=== PATIENT | female | born 1990 | race Caucasian/White ===

== ENCOUNTER 2022-05-26 10:12 | Emergency (ER) | payer MEDICARE, MEDICAID, SELFPAY ==
[2022-05-26 11:05] VITALS: BP 118/82; PULSE 86; RESP 18; TEMP 36.8; O2SAT 99; BMI 18.9
[2022-05-26 14:01] VITALS: BP 115/76; PULSE 96; RESP 16; TEMP 36.8; O2SAT 100
--- NOTE | 2022-05-26 14:29 | ED.NURSE ---
Patient wanting to leave. States No one gives a rats ass and he won't do anything for me so i just want to leave. Offered AMA paperwork but patient refused to sign stating I need a work note. notified.
--- NOTE | 2022-05-26 14:53 | ED.NURSE ---
Referral for ENT given to patient and provided the number to make appointment. Work note provided for today. Left via ambulatory. Had no further questions.
--- NOTE | 2022-05-26 15:03 | ED_ITS ---
HPI - Dental/Oral General Date Seen: 05/26/22 Chief complaint: Dental/Oral/Mouth Injury/Pain Stated complaint: Gash on roof of mouth, painful lump back of scalp Source: patient Mode of arrival: ambulatory Limitations: no limitations History of Present Illness HPI Narrative: Patient is a 31-year-old female who presents here with a spot on her upper mandible, she has had this for over a year, she said there was some discharge out of it, and she can feel it going into her sinus, on the left side, she says it radiates pain into her head, and also down through her neck, this is been going on for months to possibly your, she is recovering addict, been clean for greater than 8 months, no history of fevers chills or sweats, no neck pain or stiffness, and she says she just had enough of this would like it is taking care of, she says she has 10/10 pain, I have seen her any ED 2, she is in no apparent distress. Teeth map: 1. Related Data Home Medications Medication Instructions Recorded Confirmed No Known Home Medications 05/26/22 05/26/22 Allergies Allergy/AdvReac Type Severity Reaction Status Date / Time No Known Drug Allergies Allergy Verified 05/26/22 11:10 Review of Systems Status of ROS: Reports: 6 or more systems reviewed and unremarkable except as noted in History and below [facility] Social History Smoking Status: Current every day smoker What tobacco products do you use: c igarettes Smoking packs per day: 0.5 Smoking cigarettes per day: 10.0 Do you use any of these nicotine containing products: Vaping Products Second hand tobacco smoke exposure: Yes How often do you have a drink containing alcohol: 2-3 times a week Alcohol type: hard liquor AUDIT-C Alcohol total score: 3 Non-prescribed substance use: marijuana (any form) and other Non-prescribed substance use details: former everything drug user- sober for a few months Caffeine: Yes service: No Exam Narrative: Exam Narrative: Patient is seen and 82 she has no apparent distress, there is a spot on her hard palate, on the left side, just behind tooth number 2, it she says there is a hole there I can see a hole, but there is clearly a rigid there, her nasal mucosa bilaterally is normal her sinuses are nontender, there is no lymphadenopathy anterior posterior chains, or neck is supple, she complains of left-sided mastoid discomfort but there is no tenderness swelling notable, there is dullness to both the tympanic membranes bilaterally, but otherwise normal, no meningismus is noted, her chest is clear heart sounds are normal. Const: Vital Signs, click to edit/add: Vital Signs - 24 hr 05/26/22 11:05 05/26/22 14:01 Temperature 98.2 F 98.3 F Pulse Rate [Pulse Oximeter] 86 96 Respiratory Rate 18 16 Blood Pressure [[facility] Upper Arm] 118/82 115/76 Pulse Oximetry 99 100 Oxygen Delivery Me thod Room Air Room Air Course Vital Signs Vital signs: Initial Vital Signs Temperature 98.2 F 05/26/22 11:05 Temperature Source Temporal Artery Scan 05/26/22 11:05 Pulse Rate 86 05/26/22 11:05 Respiratory Rate 18 05/26/22 11:05 Blood Pressure 118/82 05/26/22 11:05 Blood Pressure Mean 94 05/26/22 11:05 Blood Pressure Position Sitting 05/26/22 11:05 Pulse Oximetry 99 05/26/22 11:05 Oxygen Delivery Method 05/26/22 11:05 Vital Signs Temperature 98.2 F 05/26/22 11:05 Pulse Rate 86 05/26/22 11:05 Respiratory Rate 18 05/26/22 11:05 Blood Pressure 118/82 05/26/22 11:05 Pulse Oximetry 99 05/26/22 11:05 Oxygen Delivery Method 05/26/22 11:05 Temperature 98.3 F 05/26/22 14:01 Pulse Rate 96 05/26/22 14:01 Respiratory Rate 16 05/26/22 14:01 Blood Pressure 115/76 05/26/22 14:01 Pulse Oximetry 100 05/26/22 14:01 Oxygen Delivery Method 05/26/22 14:01 MDM - Dental/Oral MDM Narrative Medical decision making narrative: I considered multiple diagnosis including tooth abscess, Rosendo's angina, sinusitis, sinus tract, mastoiditis, your infection, Considering how long it has gone on and she is nontoxic I think we can all discharge her to follow up with ENT at this point. I do not see 04/28 pain here today, recommended that she take Tylenol ibuprofen with this, she wanted a work note which I provided for her, review of the [facility] program did not show any narcotic prescriptions. Medical Records Attestation: I reviewed the patient's medical records. Discharge Plan Discharge Clinical Impression: Orofacial sinus tract Patient Disposition: Home, Self-Care Condition: Stable Additional Instructions: discharge home, follow up with ENT Prescriptions: No Action No Known Home Medications Follow Up/Referrals: Lasha Bridges MD [Staff Physician] - Stand Alone Forms: [employer] Info Instructions
--- OUTSIDE RECORDS SUMMARY | 2022-05-26 15:18 | XMS_ITS | Encounter Summary ---
:1990 Author Organization [facility] Address [address] [place] [address] Care Team Providers Name Role Phone Unavailable Primary Care Provider Unavailable Encounter Details Date Type Department Care Team Description 07/23/2018 Abstract Department of Family Medicine in Provider , [address] [address] Social History Tobacco Use Types Packs/Day Years Used Date Smoking Tobacco: Never Assessed Social Isolation Answer Date Recorded In a typical week, how many times do you talk on the Twice a week 10/07/2021 phone with family, friends, or neighbors? How often do you get together with friends or relatives? Onc e a week 10/07/2021 How often do you attend presybeterian or zoroastrianism services? Never 10/07/2021 Do you belong to any clubs or organizations such as No 10/07/2021 presybeterian groups, unions, fraternal or athletic groups, or school groups? How often do you attend meetings of the clubs or Never 10/07/2021 organizations you belong to? Are you now , , , , never Nev er 10/07/2021 or living with a partner? Physical Activity Answer Date Recorded On average, how many days per week do you engage in moderate to 5 days 10/07/2021 strenuous exercise (like walking fast, running, jogging, dancing, swimming, biking, or other activities that cause a light or heavy sweat)? On average, how many minutes do you engage in exercise at th is 20 min 10/07/2021 level? Stress Answer Date Recorded Do you feel stress - tense, restless, nervous, or anxious, R ather much 10/07/2021 or unable to sleep at night because your mind is troubled all the time - these days? Financial Resource Strain Answer Date Recorded How hard is it for you to pay for the very basics like Not v ac hard 10/07/2021 food, housing, medical care, and heating? Intimate Partner Violence Answer Date Recorded Within the last year, have you been afraid of your partner o r No 10/07/2021 ex-partner? Within the last year, have you been humiliated or emotionall y No 10/07/2021 abused in other ways by your partner or ex-partner? Within the last year, have you been kicked, hit, slapped, or No 10/07/2021 otherwise physically hurt by your partner or ex-partner? Within the last year, have you been raped or forced to have any No 10/07/2021 kind of sexual activity by your partner or ex-partner? Housing Stability Answer Date Recorded In the last 12 months, was there a time when you were not No 10/07/2021 able to pay the mortgage or rent on time? In the last 12 months, how many places have you lived? Not a sked In the last 12 months, was there a time when you did not hav e Not asked a steady place to sleep or slept in a long term (including now)? Sex Assigned at Date Recorded Female 10/07/2021 10:51 AM CDT documented as of this encounter Plan of Treatment Not on filedocumented as of this encounter Procedures Procedure Name Priority Date/Time Associated Diagnosis Comme nts COLONOSCOPY Routine 06/21/2018 Results for t his procedure are in the resu lts section. documented in this encounter Results COLONOSCOPY (06/21/2018) [facility] Method Time Signature Colonoscopy see scanned EXTERNAL report NON-INTERFACE D LAB Ordering Provider External M.D. HEALTH MAINTENANCE Performing Organization Address City/State/ZIP Code Phon e Number EXTERNAL NON-INTERFACED LAB [address] [place], [place] [address] documented in this encounter Visit Diagnoses Not on filedocumented in this encounter
--- OUTSIDE RECORDS SUMMARY | 2022-05-26 15:18 | XMS_ITS | Clinical Summary ---
:1990 Author Organization [facility] Address [address] [place] [address] Care Team Providers Name Role Phone Elsewhere, Pcp Primary Care Provider Unavailable Source Comments Patient records contain information from all sites at [facility]. For routine questions regarding patient records, call [phone] during business hours, M-F 8:00 AM - 5:00 PM Central Time. Record requests for emergency care only can be directed to [phone] at any time.[facility] Allergies No known active allergies Medications Medication Sig Dispensed Refills Start Date End Date Status traZODone (DESYREL) 100 Take 100 mg by 0 08/15/2021 Active mg tablet mouth daily with breakfast. cetirizine (ZyrTEC) 10 Take 10 mg by 0 09/24/2021 Active mg tablet mouth. etonogestreL Inject 1 each 0 05/28/2021 Ac tive (NEXPLANON) 68 mg under the skin. subdermal implant multivitamin tablet Take 1 tablet by 0 09/24/2021 Active mouth daily. Active Problems Problem Noted Date Crohns Disease Of Large Intestine Without Complication s 09/24/2021 Gastroparesis 10/27/2019 Deficiency Vitamin D 08/01/2016 Abnormal Pap Smear Cervix 05/21/2016 Overview: Formatting of this note might be differe nt from the original. Overview: 2009 ASCUS, HPV+ Formatting of this note might be differe nt from the original. 2009 ASCUS, HPV+ Resolved Problems Problem Noted Date Resolved Date Other Specified Behavioral And Emotional Disorders With 09/1810/07/2021 Onset Usually Occurring In Childhood And Adolescence Moderate Or Severe Use Disorder (Dependence) Alcohol 016 10/07/2021 Remission Overview: Formatting of this note might be differe nt from the original. Overview: Hx outpatient treatment x2 Hx DUI ; Alcohol dependence in remission ([facility]), quit date 2008 Formatting of this note might be differe nt from the original. Hx outpatient treatment x2 Hx DUI ; Alcohol dependence in remission ([facility]), quit date 2008 Opioid Moderate Or Severe Use Disorder (Dependence) 05/21/20 16 10/07/2021 Uncomplicated Overview: Formatting of this note might be differe nt from the original. 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 h/o vocal cord nodules Formatting of this note might be differe nt from the original. Overview: h/o vocal cord nodules Immunizations Name Administration Dates Next Due 4vHPV (discontinued) 11/07/2014, 09/20/2008, 06/19/2008 DTP 10/13/1995 DTaP (Infanrix, Tripedia) 10/13/1995 HepA Adult 06/13/2019 HepA Pediatric/Adolescent 06/19/2008 IPV 10/13/1995 Influenza, Injectable, Mdck, Preservative 06/01/2020 Free, Quadrivalent Influenza, Unspecified 06/13/2015 MCV4 (Menactra) 06/19/2008 MMR 02/10/2003 OPV 10/13/1995 PPSV23 05/28/2021, 06/01/2020 SARS-COV-2 (COVID-19) - Kidzloop (12 years 05/19/2021 or older) Td (Adult), adsorbed 02/10/2003 Td, (Adult) Unspecified 02/10/2003 Tdap 11/07/2014 influenza vaccine quad (FLUZONE/FLUARIX) 05/28/2021, 016, 06/13/2015 (6 months and older)(PF) Social History Tobacco Use Types Packs/Day Years Used Date Smoking Tobacco: Every Day Cigarettes 1 Smokeless Tobacco: Never Tobacco Cessation: Counseling Given: Yes Alcohol Use Standard Drinks/Week Comments Yes 0 (1 standard drink = 0.6 oz pure alcoho l) occaiaisionally. Social Isolation Answer Date Recorded In a typical week, how many times do you talk on the Twice a week 10/07/2021 phone with family, friends, or neighbors? How often do you get together with friends or relatives? Onc e a week 10/07/2021 How often do you attend moravian or mormonism services? Never 10/07/2021 Do you belong to any clubs or organizations such as No 10/07/2021 moravian groups, unions, fraternal or athletic groups, or [...] place to sleep or slept in a usp (including now)? Sex Assigned at Date Recorded Female 10/07/2021 10:51 AM CDT Last Filed Vital Signs Vital Sign Reading Time Taken Comments Blood Pressure 117/78 10/07/2021 7:59 AM CDT Pulse 95 10/07/2021 7:59 AM CDT Temperature 37.3 ??C (99.1 ??F) 10/07/2021 7:59 AM CDT Respiratory Rate 14 10/07/2021 7:59 AM CDT Oxygen Saturation 99% 10/07/2021 7:59 AM CDT Inhaled Oxygen Concentration - - Weight 48.5 kg (107 lb) 10/07/2021 7:59 AM CDT Height - - Body Mass Index - - Plan of Treatment Health Maintenance Due Date Last Done Comments Cervical Cancer Screening 1990 HIV Screening 1990 Hepatitis B Vaccines (1 of 3 - 1990 3-dose series) Hepatitis C Screening 1990 COVID-19 Vaccine (2 - Pfizer 06/09/2021 05/19/2021 series) Influenza Vaccine (#1) 2022 05/28/2021, 06/01/2020, 06/25/2016, Additional history exists Pneumococcal vaccine (0-64 years) 05/28/2022 05/28/2021, (2 - PCV) Tobacco Cessation counseling 10/07/2022 10/07/2021 DTaP,Tdap,and Td Vaccines (4 - Td 11/07/2024 11/07/2014, , or Tdap) 02/10/2003, Additional history exists HPV Vaccines Completed 11/07/2014, 09/20/2008, 06/19/2008 Depression Screening (Annual Completed 10/07/2021 PHQ-2) Insurance Payer Benefit Plan Subscriber ID Effective Phone Address Typ e / Group Dates MEDICARE MEDICARE A [id number] 2021-Pres [address] [place] [address] [facility] MEDICAID [id number] 2020-Pres [phone] [place]PT [place] ent [address] [address] [address] [place] [address] Care Teams Enamel Shader Relationship Specialty Start Date End Date Elsewhere, Pcp PCP - General Internal Medicine 10/04/21
--- OUTSIDE RECORDS SUMMARY | 2022-05-26 15:18 | XMS_ITS | Encounter Summary ---
:[address] [facility] Address [address] [place] [address] Care Team Providers Name Role Phone Unavailable Primary Care Provider Unavailable Encounter Details Date Type Department Care Team Description 01/28/2010 [facility] Lacho Espinoza M.D. [address] [place] [address] (Wo rk) Social History Tobacco Use Types Packs/Day Years Used Date Smoking Tobacco: Never Assessed Social Isolation Answer Date Recorded In a typical week, how many times do you talk on the Twice a week 10/07/2021 phone with family, friends, or neighbors? How often do you get together with friends or relatives? Onc e a week 10/07/2021 How often do you attend jainism or cheondoism services? Never 10/07/2021 Do you belong to any clubs or organizations such as No 10/07/2021 jainism groups, unions, fraternal or athletic groups, or [...] minutes do you engage in exercise at is 20 min 10/07/2021 level? Stress Answer [...] place to sleep or slept in a prison (including now)? Sex Assigned at Date Recorded Female 10/07/2021 10:51 AM CDT documented as of this encounter Progress Notes Toan Espinoza M.D. - 01/28/2010 7:16 PM CDT EC DATE OF SERVICE: 01/28/2010 REASON FOR VISIT Left shoulder pain. HISTORY OF PRESENT ILLNESS This is a 19-year-old female who developed some left shoulder pain over the last 3 days. She does not recall a specific incident. She points to her trapezius area in regards to the area of her pain. She has no neck pain. She has been using 3 tablets of Aleve twice daily for the discomfort. It has not helped much. She has not had this in the past. She has come to the urgent care for an evaluation. PAST, FAMILY, AND SOCIAL HISTORY Medical: Benign. Social: The patient smokes a pack a day. She occasionally uses alcohol. She denies illegal drug use. MEDICATIONS None. ALLERGIES None. REVIEW OF SYSTEMS No numbness, tingling, or loss of function in the left shoulder. No neck pain. No fevers. No chills.No URI symptoms. No cough. The rest of the review of systems were reviewed and otherwise negative. EXAMINATION Vital signs: Temperature 37.2. Pulse 88. Blood pressure is 104/60. Respirations 20. General: In no acute distress. No bony pain to palpation along the clavicle or AC joint. Range of motion of the shoulder is entirely normal to forward flexion, abduction, adduction, internal and external rotation. Trapezius palpation is nontender. Shoulder shrug does not illicit much pain. Spurlings maneuver is negative. Palpation of the midline of the cervical spine is nontender. Strength and reflexes in the arms are normal. IMPRESSION/REPORT/PLAN Left trapezius discomfort, question radiation from the neck. The patients examination is nonfocal for shoulder problems. My suspicion is for a neck strain. I will tell her to continue with the Naprosyn, albeit at a lower dose of 2 tablets twice daily is more than effective. She will also be given Flexeril for discomfort. I will also prescribe her some Tylenol with Codeine for the discomfort at night. If she has any further problems, I asked that she follow up with her regular doctor in [place]. All questions were answered. She was discharged in stable condition. FINAL DIAGNOSIS Left trapezius strain. EM CODE LEVEL 3. MICHAELA:christofer Doc#: [id number] cc: Electronically Signed By:TOAN ESPINOZA PA-C On 01/30/2010 10:36 PM Source: [facility] ISJDICTAPHONESYS Document Id: [id number] documented in this encounter Miscellaneous Notes Miscellaneous - Toan Espinoza M.D. - 01/28/2010 7:41 PM CDT Ambulatory Depart Summary [facility] - [address] [address] Visit Information Name: BRIANNA NOEL Current Date: 01/28/2010 19:41:07 Primary Care Provider: PCP, UNASSIGNED BRIANNA NOEL has been given the following list of medications: Your Medications It is important to take your medications as directed. Use a pill box or chart to help remind you to take your medications. Please let your doctor or nurse know if you have problems taking your medications. Medication/Strength Dose Route Frequency Indications/Special Instructions/Comments acetaminophen-codeine (Tylenol with Codeine #3 oral tablet) 1 to 2 tablets Oral every 4 hours as needed for Pain No more than 4,000mg acetaminophen/24hrs cyclobenzaprine (Flexeril 10 mg oral tablet) 10 mg Oral three times a day as needed for Muscle spasm ibuprofen (ibuprofen 600 mg oral tablet) 1 tab(s) Oral three times a day Take with food Additional Information: Yes - Current list of reconciled medications is provided and explained to the patient and/or family, guardian/caregiver. 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 Intake/History Entered On: 01/28/2010 19:28 CDT Performed On: 01/28/2010 19:22 CDT by YULI MONTOYA LPN Intake Chief Complaint: left shoulder pain Onset of Symptoms: three/four days Ambulatory Intake Additional Information: picked something up and felt sharp pain, now more of a throbbing Temperature Core: 37.2DegC(Converted to: 99.0DegF) Peripheral Pulse Rate: 88bpm Heart Rhythm: Regular Respiratory Rate: 20br/min Systolic Blood Pressure: 104mmHg Diastolic Blood Pressure: 60mmHg NIBP Mean: 75mmHg BP Location: Left upper extremity YULI MONTOYA LPN - 01/28/2010 19:22 CDT Subjective Pain Symptoms: Yes YULI MONTOYA LPN - 01/28/2010 19:22 CDT Pain Pain Assessment Grid Pain 1 Location: Shoulder Laterality: Left Intensity: 9 Time Pattern: Acute Onset: Sudden Quality: Sharp Aggravating Factors: Movement YULI MONTOYA LPN - 01/28/2010 19:22 CDT Dependent Habits Tobacco Use/Currently Using: Yes YULI MONTOYA LPN - 01/28/2010 19:22 CDT Allergies Allergies (Active) NKA Estimated Onset Date: Unspecified ; Created By: YULI MONTOYA LPN; Reaction Status: Active ;Category: Drug ; Substance: NKA ; Type: Allergy ; Updated By: YULI MONTOYA LPN; Reviewed Date: 01/28/2010 19:22 CDT Source: [employer] Document Id: [id number] CDT!27 documented in this encounter Plan of Treatment Not on filedocumented as of this encounter Visit Diagnoses Not on filedocumented in this encounter
--- OUTSIDE RECORDS SUMMARY | 2022-05-26 15:18 | XMS_ITS | Encounter Summary ---
:1990 Author Organization [facility] Address [address] [place] [address] Care Team Providers Name Role Phone Elsewhere, Pcp Primary Care Provider Unavailable Reason for Referral MRI/CAT/PET Scan (Routine) - Closed Specialty Diagnoses / Procedures Referred By Contact Refer red To Contact Radiology Diagnoses Pain Neck Demetris Morales M.D. [facility] Region Procedures MR Cervical Spine without IV Contrast [address] [place] [address] Referral ID Status Reason Start Date Expiration Date Visits Requ ested Visits Authorized [id number] Closed 10/07/2021 10/07/2022 1 1 Reason for Visit MRI/CAT/PET Scan (Routine) - Closed Specialty Diagnoses / Procedures Referred By Contact Refer red To Contact Radiology Diagnoses Pain Neck Demetris Morales M.D. [facility] Region Procedures MR Cervical Spine without IV Contrast [address] [place] [address] Referral ID Status Reason Start Date Expiration Date Visits Requ ested Visits Authorized [id number] Closed 10/07/2021 10/07/2022 1 1 Encounter Details Date Type Department Care Team Description 10/15/2021 Hospital Encounter Department of Radiology Demetris Morales M.D. Pain Neck in [place], [facility] [address] [place] [phone] Social History Tobacco Use Types Packs/Day Years Used Date Smoking Tobacco: Every Day Cigarettes 1 Smokeless Tobacco: Never Alcohol Use Standard Drinks/Week Comments Yes 0 [...] week 10/07/2021 How often do you attend spiritism or voodoo services? Never 10/07/2021 Do you belong to any clubs or organizations such as No 10/07/2021 spiritism groups, unions, fraternal or athletic groups, or [...] place to sleep or slept in a fci (including now)? Sex Assigned at Date Recorded Female 10/07/2021 10:51 AM CDT documented as of this encounter Medications at Time of Discharge Medication Sig Dispensed Refills Start Date End Date cetirizine (ZyrTEC) 10 mg Take 10 mg by mouth. 0 09/24/2021 tablet etonogestreL (NEXPLANON) 68 Inject 1 each under 0 05/28/2021 mg subdermal implant the skin. multivitamin tablet Take 1 tablet by 0 09/24/2021 mouth daily. traZODone (DESYREL) 100 mg Take 100 mg by mouth 0 08/15/2021 tablet daily with breakfast. documented as of this encounter Plan of Treatment Not on filedocumented as of this encounter Procedures Procedure Name Priority Date/Time Associated Comments Diagnosis MR CERVICAL SPINE RAD - Routine 10/15/2021 2:49 Pain Neck Result s for this WITHOUT IV (most inpatients PM CDT procedure a re in CONTRAST and all the results outpatients) section. documented in this encounter Results MR Cervical Spine without IV Contrast (10/15/2021 2:49 PM CDT) Anatomical Region Laterality Modality Spine, Cervical Spine, Neuroradiology RST LOS, N/A Magnetic Resonance Neuroradiology ARZ LOS, Neuroradiology FLA LOS Specimen (Source) Anatomical Collection Method Collection Time Re ceived Time Location / / Volume Laterality 10/15/2021 2:55 PM CDT Impressions 10/15/2021 2:57 PM CDT Normal study. Narrative 10/15/2021 2:57 PM CDT EXAM: ??MR CERVICAL SPINE WITHOUT IV CONTRAST COMPARISON: ??Plain films of the cervica l spine dated 10/07/2021 FINDINGS: ?? Skull base-C2: ??Unremarkable. C2-3: ??There is no disc herniation, any significant spinal stenosis or neural foraminal stenosis. C3-4: ??There is no disc herniation, any significant spinal stenosis or neural foraminal stenosis. C4-5: ??There is no disc herniation, any significant spinal stenosis or neural foraminal stenosis. C5-6: ??There is no disc herniation, any significant spinal stenosis or neural foraminal stenosis. C6-7: ??There is no disc herniation, any significant spinal stenosis or neural foraminal stenosis. C7-T1: ??There is no disc herniation, an y significant spinal stenosis or neural foraminal stenosis. Alignment: ??Normal. Bone Marrow: ??Normal Extra-spinal Findings: ??No significant incidental findings Procedure Note Toan Mack M.D. - 10/15/2021Format ting of this note might be different from the original. EXAM: MR CERVICAL SPINE WITHOUT IV CONTR AST COMPARISON: Plain films of the cervical spine dated 10/07/2021 FINDINGS: Skull base-C2: Unremarkable. C2-3: There is no disc herniation, any s ignificant spinal stenosis or neural foraminal stenosis. C3-4: There is no disc herniation, any s ignificant spinal stenosis or neural foraminal stenosis. C4-5: There is no disc herniation, any s ignificant spinal stenosis or neural foraminal stenosis. C5-6: There is no disc herniation, any s ignificant spinal stenosis or neural foraminal stenosis. C6-7: There is no disc herniation, any s ignificant spinal stenosis or neural foraminal stenosis. C7-T1: There is no disc herniation, any significant spinal stenosis or neural foraminal stenosis. Alignment: Normal. Bone Marrow: Normal Extra-spinal Findings: No significant in cidental findings IMPRESSION: Normal study. Demetris Morales M.D. [facility] PROCEDURES documented in this encounter Visit Diagnoses Diagnosis Pain Neck documented in this encounter Care Teams Brazing Machine Operator Relationship Specialty Start Date End Date Elsewhere, Pcp PCP - General Internal Medicine 10/04/21 documented as of this encounter
--- OUTSIDE RECORDS SUMMARY | 2022-05-26 15:18 | XMS_ITS | Encounter Summary ---
:1990 Author Organization [facility] Address [address] [place] [address] Care Team Providers Name Role Phone Unavailable Primary Care Provider Unavailable Encounter Details Date Type Department Care Team Description 09/08/2018 Abstract [facility] MARIOLA Drummond Provider, Historical [address] [facility] [place] [phone] Social History Tobacco Use Types Packs/Day Years Used Date Smoking Tobacco: Never Assessed Social Isolation Answer Date Recorded In a typical week, how many times do you talk on the Twice a week 10/07/2021 phone with family, friends, or neighbors? How often do you get together with friends or relatives? Onc e a week 10/07/2021 How often do you attend jew or orthodoxy services? Never 10/07/2021 Do you belong to any clubs or organizations such as No 10/07/2021 jew groups, unions, fraternal or athletic groups, or [...] place to sleep or slept in a skilled nursing (including now)? Sex Assigned at Date Recorded Female 10/07/2021 10:51 AM CDT documented as of this encounter Plan of Treatment Not on filedocumented as of this encounter Procedures Procedure Name Priority Date/Time Associated Diagnosis Comme nts CBC WITH DIFFERENTIAL, Routine 08/11/2018 Resul ts for this B procedure are i n the results section . HEPATIC FUNCTION PANEL Routine 08/11/2018 Resul ts for this procedure are i n the results section . documented in this encounter Results Hepatic function panel (08/11/2018) [facility] Method Time Signature Alkaline 103 25 - 125 EXTERNAL Phosphatase, S NON-INTERFACE D LAB Alanine 19 7 - 35 EXTERNAL Amniotransferase, LD NON-INTER FACE D LAB Aspartate 17 13 - 35 EXTERNAL Aminotransferase NON-INTERFACE (AST), S D LAB Bilirubin, Total, S 0.3 0.1 - 1.4 EXTERNAL NON-INTERFACE D LAB Bilirubin, Direct, S 0.1 0.01 - EXTERNAL 0.4 NON-INTERFACE D LAB Specimen (Source) Anatomical Location Collection Method / Collectio n Time Received Time / Laterality Volume Blood (Blood, Venous) Ordering Provider External M.D. LAB BLOOD ADD-ON Performing Organization Address [facility] Phon e Number EXTERNAL NON-INTERFACED LAB [address] [place], [place] [address] (ABNORMAL) CBC with Differential, Blood (08/11/2018) P athologist Signature Hemoglobin 15.7 12.0 - EXTERNAL 16.0 NON-INTERFACE D LAB Hematocrit 47 (A) 36 - 46 % EXTERNAL NON-INTERFACE D LAB Absolute 5.6 1.30 - EXTERNAL Neutrophils 8.30 NON-INTERFACE D LAB Platelet Count 244 150 - 399 EXTERNAL NON-INTERFACE D LAB Auto WBC 7.7 3.3 - 10.0 EXTERNAL 10*3/mL NON-INTERFACE D LAB Specimen (Source) Anatomical Location Collection Method / Collectio n Time Received Time / Laterality Volume Blood (Blood, Venous) Ordering Provider External M.D. LAB BLOOD ADD-ON Performing Organization Address [facility] Phon e Number EXTERNAL NON-INTERFACED LAB [address] [place], [place] [address] documented in this encounter Visit Diagnoses Not on filedocumented in this encounter
--- OUTSIDE RECORDS SUMMARY | 2022-05-26 15:18 | XMS_ITS | Encounter Summary ---
:1990 Author Organization [facility] Address [address] [place] [address] Care Team Providers Name Role Phone Elsewhere, Pcp Primary Care Provider Unavailable Reason for Referral Outpatient (Routine) - Closed Specialty Diagnoses / Procedures Referred By Contact Refer red To Contact Diagnoses Pain Neck Demetris Morales M.D. [facility] Region Procedures DX Cervical Spine 4-[address] [place] [address] Referral ID Status Reason Start Date Expiration Date Visits Requ ested Visits Authorized [id number] Closed 10/07/2021 10/07/2022 1 1 Reason for Visit Outpatient (Routine) - Closed Specialty Diagnoses / Procedures Referred By Contact Refer red To Contact Diagnoses Pain Neck Demetris Morales M.D. [facility] Region Procedures DX Cervical Spine 4-[address] [place] [address] Referral ID Status Reason Start Date Expiration Date Visits Requ ested Visits Authorized [id number] Closed 10/07/2021 10/07/2022 1 1 Encounter Details Date Type Department Care Team Description 10/07/2021 Hospital Encounter Department of Radiology, Demetris Petty M.D. Pain Neck [facility], [place] [address] [place], [place] [address] [place] [address] [place] [address] Social History Tobacco Use Types Packs/Day Years [...] week 10/07/2021 How often do you attend baptism or buddhist services? Never 10/07/2021 Do you belong to any clubs or organizations such as No 10/07/2021 baptism groups, unions, fraternal or athletic groups, or [...] place to sleep or slept in a chcf (including now)? Sex Assigned at Date Recorded [...] Procedure Name Priority Date/Time Associated Comments Diagnosis DX CERVICAL SPINE RAD - Routine 10/07/2021 8:41 Pain Neck Result s for this 4-5 VIEWS (most inpatients AM CDT procedure a re in and all the results outpatients) section. documented in this encounter Results DX Cervical Spine 4-5 Views (10/07/2021 8:41 AM CDT) Anatomical Region Laterality Modality Cervical Spine, Musculoskeletal RST LOS, N/A Computed Radiography Neuroradiology ARZ LOS, Muskuloskeletal FLA LOS Specimen (Source) Anatomical Collection Method Collection Time Re ceived Time Location / / Volume Laterality 10/07/2021 8:47 AM CDT Impressions 10/07/2021 8:49 AM CDT Prevertebral soft tissues in the cervical spine within normal limits. No acute fracture in cervical spine. Slight anterior sublu xation of C3 on C4 increases minimally between neutral and flexion films and reduces on extension. No other subluxation in cervical spine C7 interspace is mildly narrowed. Small focus of benign s clerosis in the right mandible. Remainder negative. Narrative 10/07/2021 8:49 AM CDT EXAM: DX CERVICAL SPINE 4-5 VIEWS Procedure Note Carloz Dickens M.D. - 10/07/2021Formatti ng of this note might be different from the original. EXAM: DX CERVICAL SPINE 4-5 VIEWS IMPRESSION: Prevertebral soft tissues in the cervica l spine within normal limits. No acute fracture in cervical spine. Slight anterior sublu xation of C3 on C4 increases minimally between neutral and flexion films and reduces on extension. No other subluxation in cervical spine C7 interspace is mildly narrowed. Small focus of benign s clerosis in the right mandible. Remainder negative. Demetris [facility] RAFAEL FREEMAN documented in this encounter Visit Diagnoses Diagnosis Pain Neck documented in this encounter Care Teams Mohs Surgeon Relationship Specialty Start Date End Date Elsewhere, Pcp PCP - General Internal Medicine 10/04/21 documented as of this encounter
--- OUTSIDE RECORDS SUMMARY | 2022-05-26 15:18 | XMS_ITS | Encounter Summary ---
:1990 Author Organization [facility] Address [address] [place] [address] Care Team Providers Name Role Phone Elsewhere, Pcp Primary Care Provider Unavailable Reason for Referral Outpatient (Routine) - Closed Specialty Diagnoses / Procedures Referred By Contact Refer red To Contact Diagnoses Other Chest Pain Demetris Morales M.D. [facility] Region Procedures DX Shoulder Left 2+ Views [address] [place] [address] Referral ID Status Reason Start Date Expiration Date Visits Requ ested Visits Authorized [id number] Closed 10/07/2021 10/07/2022 1 1 Reason for Visit Outpatient (Routine) - Closed Specialty Diagnoses / Procedures Referred By Contact Refer red To Contact Diagnoses Other Chest Pain Demetris Morales M.D. [facility] Region Procedures DX Shoulder Left 2+ Views [address] [place] [address] Referral ID Status Reason Start Date Expiration Date Visits Requ ested Visits Authorized [id number] Closed 10/07/2021 10/07/2022 1 1 Encounter Details Date Type Department Care Team Description 10/07/2021 Hospital Encounter Department of Demetris Morales M .D. Other Chest Pain Radiology, [place] [address] [facility], in [facility] [address] [phone] [place], [place] (Work) [phone] Social History Tobacco Use Types Packs/Day Years [...] week 10/07/2021 How often do you attend congregational or scientology services? Never 10/07/2021 Do you belong to any clubs or organizations such as No 10/07/2021 congregational groups, unions, fraternal or athletic groups, or [...] place to sleep or slept in a long-term (including now)? Sex Assigned at Date Recorded [...] Name Priority Date/Time Associated Comments Diagnosis DX SHOULDER LEFT RAD - Routine 10/07/2021 8:42 Other Chest Pain Res ults for this 2+ VIEWS (most inpatients AM CDT procedure a re in and all the results outpatients) section. documented in this encounter Results DX Shoulder Left 2+ Views (10/07/2021 8:42 AM CDT) Anatomical Region Laterality Modality Upper Extremity, Shoulder, Musculoskeletal RST LOS, Left Computed Radiography Musculoskeletal ARZ LOS, Muskuloskeletal FLA LOS Specimen (Source) Anatomical Collection Method Collection Time Re ceived Time Location / / Volume Laterality 10/07/2021 8:50 AM CDT Impressions 10/07/2021 8:51 AM CDT No acute fracture or dislocation in the left shoulder. Mild superior subluxation of the left lateral clavicle regard to the acro mium on 2 of the views the AC joint is normal in diameter. This finding could be related to prior t rauma. Left shoulder otherwise unremarkable. Narrative 10/07/2021 8:51 AM CDT EXAM: DX SHOULDER LEFT 2+ VIEWS Procedure Note Carloz Dickens M.D. - 10/07/2021Formatti ng of this note might be different from the original. EXAM: DX SHOULDER LEFT 2+ VIEWS IMPRESSION: No acute fracture or dislocation in the left shoulder. Mild superior subluxation of the left lateral clavicle regard to the acro mium on 2 of the views the AC joint is normal in diameter. This finding could be related to prior t rauma. Left shoulder otherwise unremarkable. Demetris [facility] RAFAEL FREEMAN documented in this encounter Visit Diagnoses Diagnosis Other Chest Pain documented in this encounter Care Teams Coffee Brewer Relationship Specialty Start Date End Date Elsewhere, Pcp PCP - General Internal Medicine 10/04/21 documented as of this encounter
--- OUTSIDE RECORDS SUMMARY | 2022-05-26 15:18 | XMS_ITS | Encounter Summary ---
:1990 Author Organization [facility] Address [address] [place] [address] Care Team Providers Name Role Phone Elsewhere, Pcp Primary Care Provider Unavailable Reason for Visit Reason Comments Results Encounter Details Date Type Department Care Team Description 10/07/2021 Clinical Communication Department of [facility] Demetris Petty M.D. [facility] Medicine in [place] [address] [place] [address] [place] [address] [place], [place] [phone] (Work) [phone] Social History Tobacco Use Types Packs/Day Years [...] week 10/07/2021 How often do you attend latter-day or orthodox services? Never 10/07/2021 Do you belong to any clubs or organizations such as No 10/07/2021 latter-day groups, unions, fraternal or athletic groups, or [...] AM CDT documented as of this encounter Miscellaneous Notes Telephone Encounter - Demetris Morales M.D. - 10/07/2021 4:11 PM CDT Called patient back around 4:10 pm and reviewed x-ray of neck and shoulder with her. PT will be ordered after MRI if no contraindications. Telephone Encounter - Yesi Corona - 10/07/2021 3:54 PM CDT Pt was seen today please address results of xrays Telephone Encounter - Laurel Burrows - 10/07/2021 3:26 PM CDT Returning a callback on test results. documented in this encounter Plan of Treatment Not on filedocumented as of this encounter Visit Diagnoses Not on filedocumented in this encounter Care Teams Director Trust Relationship Specialty Start Date End Date Elsewhere, Pcp PCP - General Internal Medicine 10/04/21 documented as of this encounter
--- OUTSIDE RECORDS SUMMARY | 2022-05-26 15:18 | XMS_ITS | Encounter Summary ---
:1990 Author Organization [facility] Address [address] [place] [address] Care Team Providers Name Role Phone Elsewhere, Pcp Primary Care Provider Unavailable Reason for Referral Physical Therapy (Routine) - Authorized Specialty Diagnoses / Procedures Referred By Contact Refer red To Contact Diagnoses Pain Neck Gómez Morales M.D. [facility] Region Procedures PT Evaluate and treat [address] [place] [address] Referral ID Status Reason Start Date Expiration Date Visits V isits Requested Authorized [id number] Authorized 10/15/2021 10/15/2022 1 1 RI/CAT/PET Scan (Routine) - Closed Specialty Diagnoses / Procedures Referred By Contact Refer red To Contact Radiology Diagnoses Pain Neck Gómez Morales M.D. [facility] Region Procedures MR Cervical Spine without IV Contrast [address] [place] [address] Referral ID Status Reason Start Date Expiration Date Visits Requ ested Visits Authorized [id number] Closed 10/07/2021 10/07/2022 1 1 utpatient (Routine) - Closed Specialty Diagnoses / Procedures Referred By Contact Refer red To Contact Diagnoses Other Chest Pain Gómez Morales M.D. [facility] Region Procedures DX Shoulder Left 2+ Views [address] [place] [address] Referral ID Status Reason Start Date Expiration Date Visits Requ ested Visits Authorized [id number] Closed 10/07/2021 10/07/2022 1 1 utpatient (Routine) - Closed Specialty Diagnoses / Procedures Referred By Contact Refer red To Contact Diagnoses Pain Neck Gómez Morales M.D. [facility] Region Procedures DX Cervical Spine 4-[address] [place], [place] [phone] Referral ID Status Reason Start Date Expiration Date Visits Requ ested Visits Authorized [id number] Closed 10/07/2021 10/07/2022 1 1 Reason for Visit Reason Comments Other Left side of face and neck a nd chest pain since fall about a month ago. Saw PCP in [place] and did xray of arm after the fall. Appointment Request (Routine) - Closed Specialty Diagnoses / Procedures Referred By Contact Refer red To Contact Family Medicine Referral ID Status Reason Start Date Expiration Date Visits Requ ested Visits Authorized [id number] Closed 10/04/2021 10/04/2022 1 1 Encounter Details Date Type Department Care Team Description 10/07/2021 Comprehensive Visit Department of Gómez Pulido, Pain Neck [facility] Dx[facility]; [place], [place] [address] Chronic Post Traumatic Heada lilibeth Not Intractable [address] [place] [phone] Social History Tobacco Use Types Packs/Day Years [...] week 10/07/2021 How often do you attend caodaism or hindu services? Never 10/07/2021 Do you belong to any clubs or organizations such as No 10/07/2021 caodaism groups, unions, fraternal or athletic groups, or [...] place to sleep or slept in a alf (including now)? Sex Assigned at Date Recorded Female 10/07/2021 10:51 AM CDT documented as of this encounter Last Filed Vital Signs Vital Sign Reading [...] - - Body Mass Index - - documented in this encounter Progress Notes Gómez Morales M.D. - 10/07/2021 8:00 AM CDT SUBJECTIVE CHIEF COMPLAINT / REASON FOR VISIT Brianna Ho is a 31 y.o. female who presents for evaluation of Other (Left side of face and neck and chest pain since fall about a month ago. Saw PCP in [place] and did xray of arm after the fall. ). HISTORY OF PRESENT ILLNESS 31-year-old female presents today for persisting pain left side of the neck, left shoulder and in left upper chest. She fell in the end of August, left on shoulder and left hip, no problem with left hip now. she visited her primary care doctor on September 24, had x-ray of left upper arm. No fracture seen that time. Since then her pain has been persisting, she feels like it is tight or inflamed feeling. She is able to use left arm with no restrictions, she noticed it is little hard for her to turn her neck to the left side, she was recommended to have physical therapy. But has not done anything yet so far. The following portions of the patient's history were reviewed and updated as appropriate: allergies,current medications, medical history, social history and problem list. OBJECTIVE BP 117/78 Pulse 95 Temp 37.3 ??C (Temporal) Resp 14 Wt 48.5 kg LMP (LMP Unknown) SpO2 99% No PHYSICAL EXAM Constitutional General: She is not in acute distress. Musculoskeletal Comments: No focal tenderness identified, generalized pain pointed at left side head, left neck, left shoulder area, no mass palpated. Left arm range of motion normal. Neurological General: No focal deficit present. Mental Status: She is alert and oriented to person, place, and time. DX Cervical Spine 4-5 Views Result Date: 10/07/2021 Impression: Prevertebral soft tissues in the cervical spine within normal limits. No acute fracture in cervical spine. Slight anterior subluxation of C3 on C4 increases minimally between neutral and flexion films and reduces on extension. No other subluxation in cervical spine C7 interspace is mildly n arrowed. Small focus of benign sclerosis in the right mandible. Remainder negative. DX Shoulder Left 2+ Views Result Date: 10/07/2021 Impression: No acute fracture or dislocation in the left shoulder. Mild superior subluxation of the left lateral clavicle regard to the acromium on 2 of the views the AC joint is normal in diameter. This finding could be related to prior trauma. Left shoulder otherwise unremarkable. ASSESSMENT / PLAN #1 Pain Neck Left side of neck pain, X-ray with C3 and C4 subluxation. Consulted Neurosurgery today, MRI recommended. No C collar needed. PT if indicated as MRI clears. - DX Cervical Spine 4-5 Views; Future; Expected date: 10/07/2021 #2 Other Chest Pain Left-sided shoulder and upper chest tightness, no focal tenderness no mass, Left shoulder X-ray indicating likely AC separation, no bony injury. Expected improvement with time. - DX Shoulder Left 2+ Views; Future; Expected date: 10/07/2021 #3 Chronic Post Traumatic Headache Not Intractable Left side headache, likely from left-sided neck pain. Answers for HPI/ROS submitted by the patient on 10/07/2021 Fatigue: Yes Visual problems: Yes Persistent hoarse voice: Yes Sinus congestion: Yes Chest pain, pressure or tightness: Yes Rapid or fluttering heart beats: Yes Swelling in the legs or feet: Yes Shortness of breath when lying flat: Yes Shortness of breath: Yes Dry cough: Yes Wheezing: Yes Abdominal (belly) pain or cramping: Yes Joint swelling: Yes Back pain/stiffness: Yes No skin issues: Yes Headache: Yes Light-headedness: Yes Numbness or shooting pain in hands, arms, legs or feet: Yes Weakness in arms and/or legs: Yes Excessive daytime sleepiness/tiredness: Yes Feeling nervous, anxious or on edge: Yes No blood/lymph issues: Yes No urinary/reproductive issues: Yes documented in this encounter Miscellaneous Notes Addendum Note - Gómez Morales M.D. - 10/07/2021 8:00 AM CDT Addended by: GÓMEZ MORALES on: 10/15/2021 05:30 PM Modules accepted: Orders documented in this encounter Plan of Treatment Not on filedocumented as of this encounter Results MR Cervical Spine without IV Contrast (10/15/2021 2:49 PM CDT) Anatomical Region Laterality Modality Spine, Cervical Spine, Neuroradiology RST LOS, N/A Magnetic Resonance Neuroradiology [facility], Neuroradiology [facility] Specimen (Source) Anatomical Collection Method Collection Time [...] significant in cidental findings IMPRESSION: Normal study. Gómez Morales M.D. IMG MRI PROCEDURES DX Shoulder Left 2+ Views (10/07/2021 8:42 [...] prior t rauma. Left shoulder otherwise unremarkable. [facility] PROCE DURES DX Cervical Spine 4-5 Views (10/07/2021 8:41 [...] clerosis in the right mandible. Remainder negative. 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
== END 2022-05-26 14:53 | disposition home or self-care (01) ==
LOC: ED2 14:46
PROVIDERS: Emergency Provider Family Medicine
DX: K12.2 Cellulitis and abscess of mouth (principal)
CPT/HCPCS: 99282; 99283